=== PATIENT | female | born 1950 | race Caucasian/White ===

== ENCOUNTER → 2016-11-07 13:03 | Outpatient (CLI) | payer MEDICARE, OTHER ==
[2010-03-08 09:17] VITALS: BMI 18.8
== END | disposition home or self-care (01) ==
LOC: D.CT 13:03
DX: R91.8 Other nonspecific abnormal finding of lung field (principal)

== ENCOUNTER → 2017-05-15 16:36 | Outpatient (CLI) | payer MEDICARE, OTHER ==
[2010-03-08 09:17] VITALS: BMI 18.8
== END | disposition home or self-care (01) ==
LOC: D.MAMMO 08:00
DX: Z12.31 Encounter for screening mammogram for malignant neoplasm of breast (principal)

== ENCOUNTER → 2018-06-02 19:12 | Outpatient (CLI) | payer MEDICARE, OTHER ==
[2010-03-08 09:17] VITALS: BMI 18.8
== END | disposition home or self-care (01) ==
LOC: D.MAMMO 11:00
DX: Z12.31 Encounter for screening mammogram for malignant neoplasm of breast (principal)

== ENCOUNTER 2019-06-08 09:00 | Outpatient (CLI) | payer MEDICARE, OTHER ==
[2010-03-08 09:17] VITALS: BMI 18.8
== END 2019-06-08 09:30 | disposition home or self-care (01) ==
LOC: D.MAMMO 09:00
PROVIDERS: ATTEND Family Medicine
DX: Z12.31 Encounter for screening mammogram for malignant neoplasm of breast (principal)

== ENCOUNTER 2020-06-13 18:00 | Outpatient (CLI) | payer MEDICARE, OTHER ==
[2010-03-08 09:17] VITALS: BMI 18.8
== END 2020-06-13 23:59 | disposition home or self-care (01) ==
LOC: D.MAMMO 18:00
PROVIDERS: ATTEND Obstetrics & Gynecology
DX: Z12.31 Encounter for screening mammogram for malignant neoplasm of breast (principal)